=== PATIENT | male | born 1945 | race Caucasian/White ===

== ENCOUNTER 2017-09-07 16:51 | Inpatient (IN) | payer MEDICARE, MEDICAID ==
[~2017-09-07] VITALS: Ht 160 cm; Wt 80.3 kg
[2017-09-07 17:05] VITALS: Ht 160 cm; Wt 80.3 kg
[2017-09-07 19:19] LABS: BASOPHIL % 0.7 % (0-2); PLATELET COUNT 199 x10^3mcL (130-400); RED CELL DISTRIBUTION WIDTH 13.8 % (11.5-14.5)
[2017-09-07 19:24] LABS: microscopic required? NO
[2017-09-07 19:25] LABS: CALCIUM 7.9 mg/dL (8.5-10.1); CARBON DIOXIDE 24.3 mmol/L (21-32); CHLORIDE SERUM 106 mmol/L (98-107); CREATININE SERUM 1.1 mg/dL (0.7-1.3); GFR1 > 60 mL/min; GLUCOSE SERUM 115 mg/dL (74-106); SODIUM SERUM 139 mmol/L (136-145)
[2017-09-07 19:39] LABS: ALKALINE PHOSPHATASE 55 U/L (46-116); ALT/SGPT 23 U/L (16-63); AST/SGOT 19 U/L (15-37); BILIRUBIN TOTAL 0.3 mg/dL (0.20-1.00); FREE T4 0.88 ng/dL (0.76-1.46); TOTAL PROTEIN, SERUM 6.4 g/dL (6.4-8.2)
[2017-09-07 19:39] LABS: UA SPECIFIC GRAVITY 1.015 (1.005-1.035); urine erythrocyte NEGATIVE (NEGATIVE)
[2017-09-07 19:41] LABS: ALBUMIN 3.3 g/dL (3.4-5.0)
[2017-09-07] MEDS ORDERED: TRAMADOL HCL50 MG PO (21:17)
[2017-09-07] MEDS ORDERED: NOR10 PO (21:17)
[2017-09-07] MEDS ORDERED: COZAAR100 MG PO (21:18)
[2017-09-07 22:05] VITALS: BP 90/60
[2017-09-07 22:17] VITALS: BP 90/60
[2017-09-07 22:20] LABS: ERYTHROCYTE SED RATE 17 mm/hr (0-20)
[2017-09-07 23:04] LABS: CHOLESTEROL/HDL RATIO 3.6; PHOSPHOROUS 3.4 mg/dL (2.5-4.9)
[2017-09-08 05:42] VITALS: BP 113/60
[2017-09-08 09:45] VITALS: BP 149/51
[2017-09-08 13:13] VITALS: BP 130/51
[2017-09-08 17:51] VITALS: BP 122/59
[2017-09-08 20:36] VITALS: BP 131/50
[2017-09-09 05:13] VITALS: BP 126/57
[2017-09-09 06:22] LABS: CALCIUM 8.7 mg/dL (8.5-10.1); CARBON DIOXIDE 26.7 mmol/L (21-32); CHLORIDE SERUM 111 mmol/L (98-107); CREATININE SERUM 1.1 mg/dL (0.7-1.3); GFR1 > 60 mL/min; GLUCOSE SERUM 86 mg/dL (74-106); PHOSPHOROUS 3.2 mg/dL (2.5-4.9); SODIUM SERUM 143 mmol/L (136-145)
[2017-09-09 06:37] LABS: BASOPHIL % 0.5 % (0-2); PLATELET COUNT 166 x10^3mcL (130-400); RED CELL DISTRIBUTION WIDTH 14.1 % (11.5-14.5)
[2017-09-09 09:00] VITALS: BP 140/42
[2017-09-09 14:14] VITALS: BP 151/65
[2017-09-09 17:40] VITALS: BP 164/65
[2017-09-09 21:45] VITALS: BP 149/55
[2017-09-10 05:08] VITALS: BP 141/54
[2017-09-10 06:48] LABS: BASOPHIL % 0.2 % (0-2); PLATELET COUNT 157 x10^3mcL (130-400); RED CELL DISTRIBUTION WIDTH 13.9 % (11.5-14.5)
[2017-09-10 07:06] LABS: CALCIUM 7.9 mg/dL (8.5-10.1); CARBON DIOXIDE 24.3 mmol/L (21-32); CHLORIDE SERUM 108 mmol/L (98-107); CREATININE SERUM 1.1 mg/dL (0.7-1.3); GFR1 > 60 mL/min; GLUCOSE SERUM 80 mg/dL (74-106); POTASSIUM SERUM 3.6 mmol/L (3.5-5.1); SODIUM SERUM 141 mmol/L (136-145)
[2017-09-10 08:29] VITALS: BP 146/53
[2017-09-10] MEDS ORDERED: MECLIZINE HCL12.5 MG PO (11:08)
[2017-09-10 13:53] VITALS: BP 167/52
[2017-09-10 16:32] VITALS: BP 152/52
[2017-09-10 16:33] VITALS: BP 152/52
== END 2017-09-10 17:27 | disposition home or self-care (01) | DRG 149 ==
LOC: ED 16:51 → DU 21:11
PROVIDERS: Emergency Medicine; Internal Medicine
DX: H81.09 Meniere's disease, unspecified ear (principal); N17.0 Acute kidney failure with tubular necrosis; E44.1 Mild protein-calorie malnutrition; I42.2 Other hypertrophic cardiomyopathy; E83.51 Hypocalcemia; I10 Essential (primary) hypertension; I34.0 Nonrheumatic mitral (valve) insufficiency; I36.1 Nonrheumatic tricuspid (valve) insufficiency; I37.1 Nonrheumatic pulmonary valve insufficiency; R00.1 Bradycardia, unspecified; I95.1 Orthostatic hypotension; R73.03 Prediabetes; E66.9 Obesity, unspecified; Z79.899 Other long term (current) drug therapy; Z68.31 Body mass index [BMI] 31.0-31.9, adult
CPT/HCPCS: 83880; 84439; J1885; J7030; J7040; J8597; Q0092